=== PATIENT | female | born 1980 | race Caucasian/White ===

== ENCOUNTER 2019-01-28 22:24 | Emergency (ER) | payer OTHER ==
[~2019-01-28] VITALS: Ht 152.4 cm; Wt 67.1 kg
[2019-01-28 22:24] VITALS: BP 108/69
--- NOTE | 2019-01-28 22:24 | NUR ---
PATIENT AMBULATED TO ER BED 6.
--- NOTE | 2019-01-28 22:38 | NUR ---
DR. GAMBOA BEDSIDE EVALUATING PT
[2019-01-28] MEDS ORDERED: NACL 0.9% 1,000 ML IV ONE (22:40)
[2019-01-28] MEDS ORDERED: methylPREDNISolone SS 125 MG/2 ML VIAL IVP ONE (22:40)
[2019-01-28] MEDS ORDERED: FAMOTIDINE 20 MG/2 ML VIAL IVP ONE (22:40)
[2019-01-28] MEDS ORDERED: EPINEPHrine 1:1000 - 1 MG/ML AMP IM ONE (22:40)
--- NOTE | 2019-01-28 22:40 | NUR ---
PT PRESENTS TO THE ED WITH C/O RASH. PT STATES THAT HER SYMPTOMS STARTED AFTER TAKING MOTRIN FOR BACK PAIN TODAY. RASH NOTED TO BACK, CHEST, BUE AND BLE. PT REPORTS TAKING BENADRYL PRIOR TO COMING IN WITH MINIMAL RELIEF. BREATHING EVEN AND UNLABORED. BED LOWERED WITH SIDE RAILS UP. FAMILY AT BEDSIDE
--- NOTE | 2019-01-29 01:29 | NUR ---
Patient discharged with v/s stable. Written and verbal after care instructions given and explained. Patient alert, oriented and verbalized understanding of instructions. Ambulatory with steady gait. All questions addressed prior to discharge. ID band removed. Patient advised to follow up with PMD. Rx of EPIPEN, BENADRYL, PREDNISONE, AND PEPCID given. Patient educated on indication of medication including possible reaction and side effects. Opportunity to ask questions provided and answered.
[2019-01-29 01:36] VITALS: BP 105/52
== END 2019-01-29 01:29 | disposition home or self-care (01) ==
LOC: MED 22:24
DX: T88.6XXA Anaphylactic reaction due to adverse effect of correct drug or medicament properly administered, initial encounter (principal); T39.315A Adverse effect of propionic acid derivatives, initial encounter; L50.9 Urticaria, unspecified; Z98.890 Other specified postprocedural states; Z88.0 Allergy status to penicillin; Z88.6 Allergy status to analgesic agent; Y92.89 Other specified places as the place of occurrence of the external cause
CPT/HCPCS: 96372; 96374; 96375; 99283; J0171; J2930; J3490; J7030

== ENCOUNTER 2019-04-06 08:03 | Day surgery (SDC) | payer OTHER ==
[~2019-04-06] VITALS: Ht 165.1 cm; Wt 62.6 kg
[2019-04-06] MEDS ORDERED: CLINDAMYCIN 600 MG in DEXTROSE 5% 50 ML IV SCH (08:36)
[2019-04-06] MEDS ORDERED: BUPIVACAINE-MPF/EPI 0.25% 30 ML VIAL INJ ONE (11:23)
[2019-04-06] MEDS ORDERED: MEPERIDINE 25 MG/ML SYR ONE (12:13)
[2019-04-06] MEDS ORDERED: MIDAZOLAM 2 MG/2 ML VIAL ONE (12:13)
[2019-04-06] MEDS ORDERED: fentaNYL 0.05 MG/ML VIAL ONE (12:13)
[2019-04-06] MEDS ORDERED: ONDANSETRON 4 MG/2 ML VIAL ONE (12:31)
[2019-04-06] MEDS ORDERED: DEXAMETHASONE 4 MG/ML VIAL ONE (12:31)
[2019-04-06] MEDS ORDERED: SUCCINYLCHOLINE CHLORIDE 200 MG/10 ML VIAL IVP ONE (12:31)
[2019-04-06] MEDS ORDERED: PROPOFOL 200 MG/20 ML VIAL IV ONE (12:31)
[2019-04-06] MEDS ORDERED: ROCURONIUM 50 MG/5 ML VIAL IV ONE (12:31)
[2019-04-06] MEDS ORDERED: SEVOFLURANE 250 ML BTL INH ONE (12:31)
[2019-04-06] MEDS ORDERED: LACTATED RINGERS 1,000 ML IV SCH (13:20)
[2019-04-06] MEDS ORDERED: ONDANSETRON 4 MG/2 ML VIAL IVP PRN (13:20)
[2019-04-06] MEDS ORDERED: MEPERIDINE 25 MG/ML SYR IVP PRN (13:20)
[2019-04-06] MEDS ORDERED: diphenhydrAMINE 50 MG/ML VIAL IVP PRN (13:20)
[2019-04-06] MEDS: HYDROmorphone 1 MG/ML AMP IVP PRN ×4 (13:55→14:25)
[2019-04-06] MEDS ORDERED: HYDROmorphone PFS 2 MG/ML SYR ONE (14:15)
[2019-04-06] MEDS ORDERED: HYDROmorphone 1 MG/ML AMP IVP PRN (15:00)
[2019-04-06] MEDS ORDERED: MORPHINE SULFATE 4 MG/ML SYR IV PRN (15:00)
[2019-04-06] MEDS ORDERED: HYDROcodone/APAP 5/325 MG 1 TAB TAB PO PRN (15:00)
[2019-04-06] MEDS ORDERED: MORPHINE SULFATE 2 MG/ML SYR IVP PRN (15:00)
== END 2019-04-06 15:37 | disposition home or self-care (01) ==
LOC: MMU 08:03 → MOR 08:03
PROVIDERS: ATTEND Surgery
DX: K80.10 Calculus of gallbladder with chronic cholecystitis without obstruction (principal); Z88.0 Allergy status to penicillin
CPT/HCPCS: 47562; 71045; 82374; 88304; J0330; J1100; J1170; J2175; J2250; J2270; J2405; J2704; J3010; J3490; J7030; J7060; J7120